=== PATIENT | female | born 1965 ===

== ENCOUNTER 2016-10-17 14:28 | Emergency (ER) | payer OTHER ==
[2016-10-17 14:35] VITALS: BP 141/90; PULSE 76; RESP 16; TEMP 97; O2SAT 99
--- NOTE | 2016-10-17 15:12 | ED PDOC ---
HPI: General Adult Time Seen by Provider: 10/17/16 14:28 Chief Complaint (Nursing): Back Pain Chief Complaint (Provider): Neck pain History Per: Patient History/Exam Limitations: no limitations Onset/Duration Of Symptoms: Days (x3 days) Current Symptoms Are (Timing): Still Present Additional Complaint(s): 50 y/o female presents to the emergency department with a complaint of a left- sided neck and head pain status post injury while at work. Reports she was cleaning at work when a book shelf fell on the left side of her body aiming towards the neck. Denies any further medical complaints. PMD: none Past Medical History Reviewed: Historical Data, Nursing Documentation, Vital Signs Vital Signs: Last Vital Signs Temp 97.0 F L 10/17/16 14:31 Pulse 76 10/17/16 14:31 Resp 16 10/17/16 14:31 BP 141/90 10/17/16 14:31 Pulse Ox 99 10/17/16 16:03 - Medical History PMH: No Chronic Diseases - Surgical History Surgical History: No Surg Hx - Family History Family History: States: Unknown Family Hx - Social History Current smoker - smoking cessation education provided: No Alcohol: None Drugs: Denies - Immunization History Hx Tetanus Toxoid Vaccination: No Hx Influenza Vaccination: No Hx Pneumococcal Vaccination: No - Home Medications Home Medications: Ambulatory Orders Medication Instructions Recorded Amoxicillin/Clavulanate [Augmentin 1 tab PO BID #20 tab 12/12/15 875 MG-125 MG] Cephalexin [cephalexin] 500 mg PO DAILY 12/12/15 Ibuprofen [Motrin] 600 mg PO Q6 PRN #15 tab 12/12/15 Sulfamethoxazole/Trimethoprim 1 tab PO BID #20 tab 12/12/15 [Bactrim DS 800 mg-160 mg] oxyCODONE/Acetaminophen [Percocet 1 ea PO Q6H PRN #8 tab 12/12/15 5/325 mg Tab] traMADol [Ultram] 50 mg PO Q8 #10 tab 12/17/15 Naproxen [Naprosyn Tab] 375 mg PO Q8 PRN #21 tab 10/17/16 - Allergies Allergies/Adverse Reactions: Allergies Allergy/AdvReac Type Severity Reaction Status Date / Time No Known Allergies Allergy Verified 10/17/16 15:50 Review of Systems ROS Statement: Except As Marked, All Systems Reviewed And Found Negative Musculoskeletal: Positive for: Neck Pain (Left-sided neck and head pain) Physical Exam - Reviewed Nursing Documentation Reviewed: Yes Vital Signs Reviewed: Yes - Physical Exam Appears: Positive for: Non-toxic, No Acute Distress Head Exam: Positive for: ATRAUMATIC, NORMAL INSPECTION, NORMOCEPHALIC Skin: Positive for: Normal Color, Warm, Dry ENT: Positive for: Other (Tenderness behind the ear with movement. Small amount of blood noted in the left ear canal.). Negative for: Normal ENT Inspection Neck: Positive for: Supple, Pain On Movement Of Neck (Tenderness of the left lateral neck region. ). Negative for: Normal (No c-spine tenderness. ) Neurologic/Psych: Positive for: Alert, Oriented - ECG O2 Sat by Pulse Oximetry: 99 (RA) Pulse Ox Interpretation: Normal Medical Decision Making Medical Decision Making: Initial Impression: Left-sided neck and head pain status post injury Initial Plan: --Head w/o contrast (CT) --ED Urine (POC) --Revaluation Time: 15:49 CT Head FINDINGS: HEMORRHAGE: No acute parenchymal, subarachnoid nor extra-axial hemorrhage. BRAIN: No evidence of large acute infarct. No obvious parenchymal nor extra-axial mass or collection seen on this noncontrast study. VENTRICLES: No evidence of obstructive hydrocephalus. Hydrocephalus. Incidental note made of septum cavum pellucidum and vergae. CALVARIUM: U the no acute calvarial fractures. Move E. PARANASAL SINUSES: Unremarkable as visualized. No significant inflammatory changes. MASTOID AIR CELLS: Unremarkable as visualized. No inflammatory changes. OTHER FINDINGS: None. IMPRESSION: No acute intracranial hemorrhage. Time: 16:00 Upon provider reevaluation patient is medically stable, and requires no further treatment in the ED at this time. Patient will be discharged home with Rx for Naprosyn 375mg. Counseling was provided and all questions were answered regarding diagnosis and need for follow up with PCP. There is agreement to discharge plan. Return if symptoms persist or worsen. Clinical Impression: Head Injury Scribe Attestation: Documented by Mara Kebede acting as a scribe for ELLIS Velasquez. Scribe Attestation: All medical record entries made by the Scribe were at my direction and personally dictated by me. I have reviewed the chart and agree that the record accurately reflects my personal performance of the history, physical exam, medical decision making, and the department course for this patient. I have also personally directed, reviewed, and agree with the discharge instructions and disposition. Disposition - Clinical Impression Clinical Impression: Head injury - Patient ED Disposition Is Patient to be Admitted: No Doctor Will See Patient In The: Office Counseled Patient/Family Regarding: Studies Performed, Diagnosis, Need For Followup, Rx Given - Disposition Referrals: [facility] [Outside] Disposition: Routine/Home Disposition Time: 16:00 Condition: FAIR Prescriptions: Naproxen [Naprosyn Tab] 375 mg PO Q8 PRN #21 tab PRN Reason: Pain, Moderate (4-7) Instructions: Cervical Strain (DC), Head Injury (ED) Forms: [facility] ED School/Work Excuse Print Language: HEBREW
--- NOTE | 2016-10-17 15:51 | CT ---
PROCEDURE: CT HEAD WITHOUT CONTRAST. HISTORY: HEAD INJURY ; TENDER BY LEFT EAR COMPARISON: None available. TECHNIQUE: Axial computed tomography images were obtained through the head/brain without intravenous contrast. Radiation dose: Total exam DLP = 826.24 mGy-cm. This CT exam was performed using one or more of the following dose reduction techniques: Automated exposure control, adjustment of the mA and/or kV according to patient size, and/or use of iterative reconstruction technique. FINDINGS: HEMORRHAGE: No acute parenchymal, subarachnoid nor extra-axial hemorrhage. BRAIN: No evidence of large acute infarct. No obvious parenchymal nor extra-axial mass or collection seen on this noncontrast study. VENTRICLES: No evidence of obstructive hydrocephalus. Hydrocephalus. Incidental note made of septum cavum pellucidum and vergae. CALVARIUM: U the no acute calvarial fractures. Move E. PARANASAL SINUSES: Unremarkable as visualized. No significant inflammatory changes. MASTOID AIR CELLS: Unremarkable as visualized. No inflammatory changes. OTHER FINDINGS: None. IMPRESSION: No acute intracranial hemorrhage.
== END 2016-10-17 16:04 | disposition home or self-care (01) ==
LOC: H.ER 14:28
DX: S09.90XA Unspecified injury of head, initial encounter (principal); M54.2 Cervicalgia; W22.8XXA Striking against or struck by other objects, initial encounter; Y99.0 Civilian activity done for income or pay